=== PATIENT | female | born 1990 | race Caucasian/White ===

== ENCOUNTER 2017-10-07 16:05 | Inpatient (IN) ==
[2017-10-07] MEDS ORDERED: Metoclopramide 10 MG/2 ML VIAL IVP PRN (16:17)
[2017-10-07] MEDS ORDERED: Famotidine 20 MG/2 ML VIAL IVP PRN (16:17)
[2017-10-07] MEDS ORDERED: Lidocaine 1% 20 ML MDV INFILT PRN (16:17)
[2017-10-07] MEDS ORDERED: Ondansetron 4 MG/2 ML VIAL IVP PRN (16:17)
[2017-10-07] MEDS ORDERED: Naloxone 0.4 MG/ML INJ IVP PRN (16:17)
[2017-10-07] MEDS ORDERED: *HR* Nalbuphine 10 MG/ML AMPUL IVP PRN (16:17)
[2017-10-07] MEDS ORDERED: Ringers Solution, Lactated 1,000 ML IVC SCH (16:30)
[2017-10-07] MEDS ORDERED: Penicillin G Potassium 5,000,000 UNIT in D5% in Water (Mini-Bag+) 100 ML IVPB ONE (16:30)
[2017-10-07] MEDS ORDERED: Oxytocin 20 units/ LR 1000 mL 20 UNIT/1,000 ML BAG IVC SCH (16:30)
[2017-10-07] MEDS ORDERED: Penicillin G Potassium 5,000,000 UNIT in 0.9 % Sodium Chloride Mini Bag 100 ML IVPB ONE (16:45)
--- NOTE | 2017-10-07 17:02 | OB/GYN History & Physical ---
Date of Encounter: 10/07/17 Time of Encounter: 16:41 Assessment and Plan (1) 40 weeks gestation of Current visit: Yes Status: Acute (2) PROM (premature rupture of membranes) Current visit: Yes Status: Acute Admit for expectant management. Will start PCN for GBS ppx since it has been >4 weeks since GBS culture was collected. Augment labor with pitocin if needed. Pain medication or epidural if requested. Reposition frequently. Anticipate . POC discussed with Dr. Terrazas. Qualifiers: PROM onset of labor timing: onset of labor within 24 hours of rupture PROM gestational age: full term Qualified Code(s): O42.02 - Full-term premature rupture of membranes, onset of labor within 24 hours of rupture (3) Rh negative state in antepartum period Current visit: Yes Status: Acute History of Present Illness Chief complaint: PROM >24 hours HPI: Ms. King is a 27 year old female presenting at 40w1d from [facility] for failure to progress in labor following SROM at 1000 yesterday. She reports some contractions but they are about 7 minutes apart and not too painful. She denies any other complaints at this time. [facility] No complications. She does have asthma for which she used albuterol through the winter but not since. Blood type O negative, Rhogam given at 29 weeks Rubella immune GBS negative at 35 weeks Past Med Surg Social Fam HX - Past Medical History Medical history: asthma Psychiatric history: no psych history - Past Surgical History Surgical History: cholecystectomy, orthopedic, other - Social History Smoking Status: Never smoker Smokeless Tobacco Status: No Alcohol use: none Drug use: none Obstetrical History - Pregnancies : 1 Medications and Allergies 3 Allergy/AdvReac Type Severity Reaction Status Date / Time naproxen [From Naprosyn] Allergy Shakiness Verified 04/22/15 23:08 Review of System OB All systems PM: reviewed and no additional remarkable complaints except as stated Exam - Constitutional Constitutional: well developed, well nourished, mild distress - HEENT HEENT: Mucus Membranes Moist - Lungs Respiratory exam: CTAB - Cardiovascular Cardiovascular exam: RRR - Abdomen Abdomen: Present: gravid, non tender - Extremities Extremities exam: pedal edema (no erythema or warmth) - Vulva Vulva: bilateral: normal - Cervix Dilation: 8 Effacement: 100 Station: 0 - Anus/Rectum Anus/Rectum: Present: normal perianal skin Results All other labs normal. - VTE Reasons for not Prescribing Prophylaxis: Treatment not Indicated - Low risk for VTE
[2017-10-07 17:04] LABS: Basophils % 0.1 %; Hematocrit 35.8 % (35.3-44.9); Hemoglobin 12.7 g/dL (11.5-15.4); Immature Granulocytes % 0.6 % (0-4); Lymphocytes # 2.3 K/mcL (0.6-4.6); Lymphocytes % 9.7 %; Mean Corpuscular HGB Conc 35.5 g/dL (31.6-35.5); Mean Corpuscular Hemoglobin 32.5 pg (28.0-33.3); Mean Corpuscular Volume 91.6 fL (83.0-100.0); Mean Platelet Volume 11.4 fL (9.4-12.4); Monocytes # 1.7 K/mcL (0.0-1.3); Monocytes % 7.2 %; Neutrophils # 19.7 K/mcL (1.6-8.9); Platelet Count 228 K/mcL (140-400); Red Blood Count 3.91 M/mcL (3.82-4.97); Red Cell Distribution Width 13.5 % (11.5-14.5); Segmented Neutrophils % 82.4 %
[2017-10-07 17:13] LABS: Amphetamine Screen,Urine Negative ng/mL (Cutoff=1000); Barbiturate Screen,Urine Negative ng/mL (Cutoff=200); Benzodiazepines Screen,Urine Negative ng/mL (Cutoff=200); Cannabinoid Screen,Urine Negative ng/mL (Cutoff = 50); Cocaine Screen,Urine Negative ng/mL (Cutoff= 300); Opiate Screen,Urine Negative ng/mL (Cutoff=300); Phencyclidine Screen,Urine Negative ng/mL (Cutoff=25)
[2017-10-07] MEDS ORDERED: Penicillin G Potassium 2,500,000 UNIT in 0.9 % Sodium Chloride 100 ML IVPB SCH (20:30)
[2017-10-07] MEDS ORDERED: GENTAMICIN IVPB ONE (21:09)
[2017-10-07] MEDS ORDERED: SODIUM CHLORIDE 0.9% IVPB ONE (21:09)
--- NOTE | 2017-10-07 21:18 | OB Labor Progress Note ---
Date of Encounter: 10/07/17 Time of Encounter: 21:15 Labor Progress Note - Subjective Subjective: Pt denies needs at this time. - Cervix Cervix: 9.5/100/0 - Heart Tones Heart Tones: Category II, minimal variability, rising baseline rate - [place]: 2-4 minutes - Plan Plan: Given rising baseline will change antibiotics to ampicillin and gentamicin due to concern for chorioamnionitis.
[2017-10-07] MEDS ORDERED: Ampicillin 2 GM in 0.9 % Sodium Chloride Mini Bag 100 ML IVPB SCH (21:30)
--- NOTE | 2017-10-08 01:51 | OB/GYN Procedure Note ---
Delivery - Delivery Date: 10/08/17 Provider: Haven Bradley Intrapartum events: foul smelling fluid, prolonged labor- > = 20hr, other( please specify) (prolonged rupture of membranes) Delivery augmentation: pitocin Delivery monitor: external FHT, external uterine Anesthesia: local Quantitated Blood Loss: 450 - (s) A Delivery Date: 10/08/17 Infant Delivery Time: 00:48 Presentation: vertex Position: RADHA Route of delivery: Gender: Female Viability: Viable Pounds: 7 Ounces: 0 Weight Gram: 3.185 kg at 1 minute: 8 at 5 mins: 9 Shoulder Dystocia: not encountered Specimens collected: cord blood Placenta: spontaneous Cord: nuchal cord (x2), 3 umbilical vessels, delivered through nuchal - Repair Episiotomy: none Laceration Description: Periurethral (superficial, hemostatic), Perineal - 1st Degree - Complications Delivery complications: uterine atony Delivery comments: Pt presented from center for failure to progress past 6cm following PROM for over 24 hours. She was 8cm upon arrival and progressed slowly to complete. She then pushed effectively to [facility] for viable female weighing 7lbs with apgars 8at one minute and 9 at five minutes. After 30 second delay the cord was clamped and cut per nursery staff request. The placenta then delivered spontaneous and intact. Uterine atony was then noted despite pitocin. Methergine given and bimanual compression performed. Uterine exploration reveals a few small clots but no placental fragments obtained. Uterine atony most likely due to prolonged labor and possible chorioamnionitis (suspected due to tachycardia and foul smelling fluid at delivery). Thorough inspection reveals superficial, hemostatic, periurethral laceration that was not repaired and a 1st degree perineal laceration that was repaired with 2-0 monocryl. Uterine atony was then again noted and cytotec was given rectally. Fundus firm with massage and lochia moderate following procedure. EBL 450ml. Mother and baby stable in kangaroo care following delivery. - Disposition Mom disposition: stable in LDR [place] disposition: stable in LDR
[2017-10-08] MEDS ORDERED: Measles/Mumps/Rubella Vacc 0.5 ML VIAL SQ PRN (02:08)
[2017-10-08] MEDS ORDERED: Ibuprofen 600 MG TABLET PO PRN (02:08)
[2017-10-08] MEDS ORDERED: Lanolin 7 G OINT...G. TP PRN (02:08)
[2017-10-08] MEDS ORDERED: Acetaminophen 325 MG TABLET PO PRN (02:08)
[2017-10-08] MEDS ORDERED: Methylergonovine 0.2 MG/ML AMPUL IM ONE ×2 (02:08→15:44)
[2017-10-08] MEDS ORDERED: miSOPROStol 100 MCG TABLET RC STA (02:08)
[2017-10-08] MEDS ORDERED: Benzocaine/Menthol 56 GM AEROSOL SPRAY TP PRN (02:08)
[2017-10-08] MEDS ORDERED: Oxytocin 20 units/ LR 1000 mL 20 UNIT/1,000 ML BAG IVC SCH (02:08)
[2017-10-08] MEDS ORDERED: Rho Immune Globulin 1,500 UNIT SYRINGE IM PRN (02:08)
[2017-10-08 04:36] LABS: Basophils % 0.1 %; Mean Platelet Volume 11.3 fL (9.4-12.4); Monocytes % 5.6 %
[2017-10-08 04:37] LABS: Hematocrit 33.4 % (35.3-44.9); Hemoglobin 12.1 g/dL (11.5-15.4); Immature Granulocytes % 1.4 % (0-4); Lymphocytes # 2.2 K/mcL (0.6-4.6); Mean Corpuscular HGB Conc 36.2 g/dL (31.6-35.5); Mean Corpuscular Hemoglobin 33.7 pg (28.0-33.3); Monocytes # 2.1 K/mcL (0.0-1.3); Nucleated Red Blood Cells 0.1 /100 WBC (0); Platelet Count 240 K/mcL (140-400); Red Blood Count 3.59 M/mcL (3.82-4.97); Red Cell Distribution Width 13.3 % (11.5-14.5); Segmented Neutrophils % 86.9 %
[2017-10-08 04:48] LABS: Neutrophils # 32.1 K/mcL (1.6-8.9)
[2017-10-08 04:58] LABS: Platelet Estimate Normal (Normal); Reactive Lymphocytes Present (Not Present); Toxic Granulation Present (Not Present)
[2017-10-08 08:02] VITALS: BP 116/73
[2017-10-08] MEDS ORDERED: Prenatal Vit/FA 1 EACH TABLET PO SCH (09:00)
[2017-10-08] MEDS ORDERED: miSOPROStol 100 MCG TABLET PO SCH (09:00)
--- NOTE | 2017-10-08 09:44 | Discharge Summary ---
Date of Encounter: 10/08/17 Time of Encounter: 09:46 - Discharge Diagnosis (1) Vaginal delivery Priority: Primary Status: Acute Comments: Doing well. Holding , states baby nursing well. Ambulating and voiding without difficulty. Tolerating regular diet. Lochia moderate and without clots, patient describes as normal period. Mild cramping well controled with Iuprofen. Discussed need for repeat CBC before discharge, patient agreeable. Patient and request that follow up for patient and baby be with their Beater Engineer in [place]. - Discharge Medications Prescriptions: Ibuprofen [Motrin] 600 mg PO Q6HR PRN #30 tablet PRN Reason: Cramping Home Medications: Acetaminophen [Tylenol] 650 mg PO Q6HR PRN tablet 10/08/17 [Rx] Benzocaine/Menthol [place] [Dermoplast [place]] 1 appl TP QID PRN aerosol 10/08/17 [Rx] Ibuprofen [Motrin] 600 mg PO Q6HR PRN #30 tablet 10/08/17 [Rx] Lanolin [Lansinoh] 1 appl TP Q4HR PRN oint...g. 10/08/17 [Rx] Vit/FA 1 each PO DAILY tablet 10/08/17 [Rx] Allergies/Adverse Reactions: 3 Allergy/AdvReac Type Severity Reaction Status Date / Time naproxen [From Naprosyn] Allergy Shakiness Verified 04/22/15 23:08 Data Procedures and tests throughout hospitalization: Laboratory Tests 10/07/17 10/07/17 10/08/17 16:35 16:35 01:10 WBC 23.9 H RBC 3.91 Hgb 12.7 Hct 35.8 MCV 91.6 MCH 32.5 MCHC 35.5 RDW 13.5 Plt Count 228 MPV 11.4 Immature Gran % 0.6 Seg Neutrophils % 82.4 Lymphocytes % 9.7 Monocytes % 7.2 Eosinophils % 0.0 Basophils % 0.1 Neutrophils # 19.7 H Lymphocytes # 2.3 Monocytes # 1.7 H Eosinophils # 0.0 Basophils # 0.0 Nucleated RBCs/100 WBC Reactive Lymphocytes Toxic Granulation Platelet Estimate Urine Opiates Screen Negative Ur Barbiturates Screen Negative Ur Phencyclidine Scrn Negative Ur Amphetamines Screen Negative U Benzodiazepines Scrn Negative Urine Cocaine Screen Negative U Marijuana (THC) Screen Negative Hep Bs Antigen Nonreactive 10/08/17 04:19 WBC 36.9 H* D RBC 3.59 L Hgb 12.1 Hct 33.4 L MCV 93.0 MCH 33.7 H MCHC 36.2 H RDW 13.3 Plt Count 240 MPV 11.3 Immature Gran % 1.4 Seg Neutrophils % 86.9 Lymphocytes % 6.0 Monocytes % 5.6 Eosinophils % 0.0 Basophils % 0.1 Neutrophils # 32.1 H Lymphocytes # 2.2 Monocytes # 2.1 H Eosinophils # 0.0 Basophils # 0.0 Nucleated RBCs/100 WBC 0.1 H Reactive Lymphocytes Present A Toxic Granulation Present A Platelet Estimate Normal Urine Opiates Screen Ur Barbiturates Screen Ur Phencyclidine Scrn Ur Amphetamines Screen U Benzodiazepines Scrn Urine Cocaine Screen U Marijuana (THC) Screen Hep Bs Antigen Labs on day of discharge: Labs from last 24 hours 10/08/17 10/08/17 10/07/17 04:19 01:10 16:35 WBC 36.9 H* D 23.9 H RBC 3.59 L 3.91 Hgb 12.1 12.7 Hct 33.4 L 35.8 MCV 93.0 91.6 MCH 33.7 H 32.5 MCHC 36.2 H 35.5 RDW 13.3 13.5 Plt Count 240 228 MPV 11.3 11.4 Immature Gran % 1.4 0.6 Seg Neutrophils % 86.9 82.4 Lymphocytes % 6.0 9.7 Monocytes % 5.6 7.2 Eosinophils % 0.0 0.0 Basophils % 0.1 0.1 Neutrophils # 32.1 H 19.7 H Lymphocytes # 2.2 2.3 Monocytes # 2.1 H 1.7 H Eosinophils # 0.0 0.0 Basophils # 0.0 0.0 Nucleated RBCs/100 WBC 0.1 H Reactive Lymphocytes Present A Toxic Granulation Present A Platelet Estimate Normal Urine Opiates Screen Ur Barbiturates Screen Ur Phencyclidine Scrn Ur Amphetamines Screen U Benzodiazepines Scrn Urine Cocaine Screen U Marijuana (THC) Screen Hep Bs Antigen Nonreactive 10/07/17 16:35 WBC RBC Hgb Hct MCV MCH MCHC RDW Plt Count MPV Immature Gran % Seg Neutrophils % Lymphocytes % Monocytes % Eosinophils % Basophils % Neutrophils # Lymphocytes # Monocytes # Eosinophils # Basophils # Nucleated RBCs/100 WBC Reactive Lymphocytes Toxic Granulation Platelet Estimate Urine Opiates Screen Negative Ur Barbiturates Screen Negative Ur Phencyclidine Scrn Negative Ur Amphetamines Screen Negative U Benzodiazepines Scrn Negative Urine Cocaine Screen Negative U Marijuana (THC) Screen Negative Hep Bs Antigen Preliminary micro results at discharge 10/08/17 01:53 Placental Culture - Preliminary Placenta Date of admission: 10/07/17 16:05 Primary care physician: PCP NONE Consults: 10/08/17 02:08 Consult to Farm Hel[employer] [CONS] Routine Comment: Vaginal delivery, consult needed Discharging clinician: Tamica Can Anticipated date of discharge: 10/08/17 - Patient Status Disposition: Home, Self-Care Condition: Good Functional capacity at discharge: independent ambulation Overall status at discharge: patient is progressing back to baseline - Discharge Instructions Follow Up With: NONE,PCP [Primary Care Provider] - Haven Bradley CNM [Non-Partnered Physician] - - Diet and Activity Activity: resume usual activities as tolerated Diet: advance to your usual diet Hospital Course [employer] SUPER[employer]ENT Time Attestation: Total time spent providing and/or coordinating discharge services: Time Spent: Less than 30 minutes Exam - Constitutional Vitals: Temp Pulse Resp BP Pulse Ox 98.4 F 99 16 116/73 98 10/08/17 08:01 10/08/17 08:01 10/08/17 08:01 10/08/17 08:01 10/08/17 06:15 General appearance IM: cooperative, A&O X 3, pleasant, answers questions appropriately - Respiratory Respiratory exam: Present: CTAB - Cardiovascular Cardiovascular exam IM: Present: RRR - GI/Abdominal GI/Abdominal exam IM: normal bowel sounds - Rectal Rectal exam: deferred - Uterine Tone: Firm Uterus Position: 1 Finger Below Umbilicus, Midline - Extremities Exam Extremities exam IM: Present: full ROM, normal inspection, pedal edema, radial pulses palpable and symmetrical - Neurological Exam Neurological exam: alert, normal gait, oriented X3, reflexes normal - VTE Reasons for not Prescribing Prophylaxis: Treatment not Indicated - Low risk for VTE
[2017-10-08 13:04] LABS: Basophils % 0.2 %; Eosinophils # 0.1 K/mcL (0.0-0.6); Eosinophils % 0.3 %; Hematocrit 29.3 % (35.3-44.9); Immature Granulocytes % 0.7 % (0-4); Lymphocytes % 15.4 %; Mean Corpuscular HGB Conc 35.8 g/dL (31.6-35.5); Mean Corpuscular Hemoglobin 33.8 pg (28.0-33.3); Mean Corpuscular Volume 94.2 fL (83.0-100.0); Mean Platelet Volume 11.2 fL (9.4-12.4); Monocytes # 1.2 K/mcL (0.0-1.3); Monocytes % 6.3 %; Neutrophils # 15.3 K/mcL (1.6-8.9); Platelet Count 195 K/mcL (140-400); Red Blood Count 3.11 M/mcL (3.82-4.97); Red Cell Distribution Width 13.5 % (11.5-14.5); Segmented Neutrophils % 77.1 %
[2017-10-08 13:07] LABS: Hemoglobin 10.5 g/dL (11.5-15.4)
[2017-10-08] MEDS ORDERED: miSOPROStol 100 MCG TABLET PO ONE (15:44)
== END 2017-10-08 15:45 | disposition home or self-care (01) | DRG 775 ==
LOC: 1NENULAB → OBSVTOIN 16:05 → 1NENUOBS 10-08 04:03
PROVIDERS: ADMIT Obstetrics & Gynecology; ATTEND Obstetrics & Gynecology